=== PATIENT | male | born 1975 | race Hispanic/Latino ===

== ENCOUNTER 2020-09-13 10:41 | Inpatient (IN) | payer SELFPAY ==
[~2020-09-13] VITALS: Ht 170.2 cm; Wt 84.1 kg
[2020-09-13 10:43] VITALS: BP 129/76
[2020-09-13 11:16] LABS: APPEARANCE,URINE Clear (CLEAR); BILIRUBIN,URINE Negative (NEGATIVE); COLOR,URINE Yellow (YELLOW); GLUCOSE, URINE (UA) >=1000 mg/dL (NEGATIVE); KETONES,URINE 15 mg/dL (NEGATIVE); LEUKOCYTE ESTERASE ,URINE Negative (NEGATIVE); NITRATE,URINE Negative (NEGATIVE); OCCULT BLOOD,URINE Negative (NEGATIVE); PROTEIN,URINE Negative (NEGATIVE); UROBILINOGEN,URINE 0.2 mg/dL (0.2-1.0)
[2020-09-13 11:28] LABS: RBC,URINE 0-1 /HPF (0-1)
[2020-09-13 11:29] LABS: BACTERIA,URINE Rare /HPF (None Seen); SQUAMOUS EPITHELIAL CELL,UR Few /HPF (0-2)
[2020-09-13 11:30] LABS: BASOPHILS % (AUTO) 0.3 % (0.0-5.0); EOSINOPHILS % (AUTO) 2.3 % (0.0-8.0); HEMATOCRIT 46.3 % (42-54); LYMPHOCYTES % (AUTO) 5.2 % (21.0-51.0); MEAN CORPUSCULAR HEMOGLOBIN 29.6 pg (27.0-33.0); MEAN CORPUSCULAR HGB CONC 35.6 g/dL (32.0-36.0); MEAN CORPUSCULAR VOLUME 83.1 fL (79-99); NEUTROPHILS % (AUTO) 82.7 % (40.0-77.0); PLATELET COUNT (AUTO) 322 K/uL (130-400); RED BLOOD CELL COUNT(AUTO) 5.57 MIL/uL (4.50-6.20); RED CELL DISTRIBUTION WIDTH 13.6 % (11.0-15.5); WHITE BLOOD COUNT (AUTO) 11.1 K/uL (4.8-10.8)
[2020-09-13 11:58] LABS: ALBUMIN 3.3 g/dL (3.5-5.0); BILIRUBIN,TOTAL 1.5 mg/dL (0.2-1.0)
[2020-09-13] MEDS ORDERED: PROCHLORPERAZINE EDISYLATE 5 MG/ML 2 ML VIAL IVP ONE (12:00)
[2020-09-13] MEDS ORDERED: FAMOTIDINE 20MG VIAL IV ONE (12:00)
[2020-09-13] MEDS ORDERED: KETOROLAC 30MG VIAL (30MG/ML) IVP ONE (12:00)
[2020-09-13] MEDS ORDERED: LACTATED RINGERS 1000ML 1,000 ML IV ONE ×2 (12:00→13:00)
[2020-09-13] MEDS ORDERED: DiphenhydrAMINE HCL 50 MG/ML VIAL IV ONE (12:00)
[2020-09-13 12:43] LABS: CREATININE 1.1 mg/dL (0.5-1.5)
[2020-09-13] MEDS ORDERED: 0.9%NACL 1000ML 1,000 ML IV ONE (13:00)
[2020-09-13] MEDS ORDERED: INSULIN HUMULIN R 100 UNIT/ML 3ML IV ONE ×2 (13:00→17:00)
[2020-09-13 13:01] LABS: TOTAL PROTEIN, SERUM 7.5 g/dL (6.0-8.3)
[2020-09-13] MEDS ORDERED: PROCHLORPERAZINE 10MG/2ML INJ ONE (13:20)
[2020-09-13 14:59] VITALS: BP 110/70
[2020-09-13] MEDS ORDERED: ZOSYN 3.375GM+NS 50ML 50 ML IV ONE (17:30)
[2020-09-13] MEDS ORDERED: 0.9%NACL 50ML 50 ML IV ONE (17:48)
[2020-09-13] MEDS ORDERED: FENTANYL CITRATE PF 50 MCG/1 ML 2ML VIAL IVP ONE (18:00)
[2020-09-13 19:00] VITALS: BP 109/77
[2020-09-13] MEDS ORDERED: NITROGLYCERIN 0.4 MG SL TAB SL PRN (19:30)
[2020-09-13] MEDS ORDERED: INSULIN REGULAR, HUMAN 3ML 100 UNIT in 0.9%NACL 100ML 99 ML IV SCH ×2 (19:30)
[2020-09-13] MEDS ORDERED: DEXTROSE 5 %-0.45 % NACL 1,000 ML IV PRN (19:30)
[2020-09-13] MEDS ORDERED: ONDANSETRON 4MG INJ IV PRN (19:30)
[2020-09-13] MEDS ORDERED: ACETAMINOPHEN 325 MG TAB PO PRN ×2 (19:30)
[2020-09-13] MEDS ORDERED: 0.9%NACL 1000ML 1,000 ML IV SCH (19:30)
[2020-09-13] MEDS ORDERED: FENTANYL CITRATE PF 50 MCG/1 ML 2ML VIAL ONE (19:57)
[2020-09-13] MEDS ORDERED: MORPHINE 2 MG SYG IVP PRN (20:00)
[2020-09-13 20:01] VITALS: BP 124/76
[2020-09-13] MEDS: 0.9%NACL 1000ML 1,000 ML IV SCH (20:29)
[2020-09-13 20:44] LABS: CREATININE 1.2 mg/dL (0.5-1.5); MAGNESIUM 1.9 mg/dL (1.80-2.40)
[2020-09-13 20:53] LABS: ABG BASE EXCESS -5.1 mmol/L (-2.0-3.0); ABG HCO3 17.7 mmol/L (21.0-28.0); ABG OXYGEN SATURATION 94.9 % (95.0-99.0); ABG PCO2 28 mmHg (35-48)
[2020-09-13 21:00] VITALS: BP 115/73
[2020-09-13] MEDS: FAMOTIDINE 20MG VIAL IV SCH (21:00)
[2020-09-13] MEDS ORDERED: CALCIUM GLUC IV SCH (21:00)
[2020-09-13] MEDS ORDERED: [UNRECOGNIZED DRUG - OTHER] IV SCH (21:00)
[2020-09-13 22:00] VITALS: BP 116/73
[2020-09-14] VITALS (18 sets, daily range): BP systolic 123–161; BP diastolic 76–99
[2020-09-14 00:40] LABS: ABG BASE EXCESS -4.1 mmol/L (-2.0-3.0); ABG HCO3 18.3 mmol/L (21.0-28.0); ABG OXYGEN SATURATION 94.3 % (95.0-99.0); ABG PCO2 27 mmHg (35-48)
[2020-09-14 02:19] LABS: CREATININE 0.9 mg/dL (0.5-1.5); MAGNESIUM 1.8 mg/dL (1.80-2.40); POTASSIUM 3.6 mmol/L (3.5-5.1)
[2020-09-14 04:30] LABS: ABG BASE EXCESS -1.5 mmol/L (-2.0-3.0); ABG HCO3 21.2 mmol/L (21.0-28.0); ABG OXYGEN SATURATION 94.4 % (95.0-99.0); ABG PCO2 31 mmHg (35-48)
[2020-09-14] MEDS: 0.9%NACL 1000ML 1,000 ML IV SCH (04:43)
[2020-09-14 04:47] LABS: BASOPHILS % (AUTO) 0.1 % (0.0-5.0); EOSINOPHILS % (AUTO) 1.6 % (0.0-8.0); HEMATOCRIT 39.8 % (42-54); LYMPHOCYTES % (AUTO) 7.6 % (21.0-51.0); MEAN CORPUSCULAR HEMOGLOBIN 28.7 pg (27.0-33.0); MEAN CORPUSCULAR HGB CONC 35.2 g/dL (32.0-36.0); MEAN CORPUSCULAR VOLUME 81.7 fL (79-99); MONOCYTES % (AUTO) 6.6 % (3.0-13.0); NEUTROPHILS % (AUTO) 83.9 % (40.0-77.0); PLATELET COUNT (AUTO) 261 K/uL (130-400); RED BLOOD CELL COUNT(AUTO) 4.87 MIL/uL (4.50-6.20); RED CELL DISTRIBUTION WIDTH 13.8 % (11.0-15.5)
[2020-09-14 05:27] LABS: ALBUMIN 2.6 g/dL (3.5-5.0); BILIRUBIN,TOTAL 0.7 mg/dL (0.2-1.0); CREATININE 0.9 mg/dL (0.5-1.5); MAGNESIUM 1.8 mg/dL (1.80-2.40); POTASSIUM 3.3 mmol/L (3.5-5.1); TOTAL PROTEIN, SERUM 6.6 g/dL (6.0-8.3)
[2020-09-14] MEDS ORDERED: [UNRECOGNIZED DRUG - OTHER] IV SCH ×2 (05:30→20:30)
[2020-09-14] MEDS ORDERED: LACTATED RINGERS 1000ML 1,000 ML IV SCH (05:30)
[2020-09-14] MEDS ORDERED: CALCIUM GLUC IV SCH ×2 (05:30→20:30)
[2020-09-14] MEDS: POTASSIUM CHLORIDE 10MEQ/100ML 100 ML IV PRN ×6 (06:27→23:53)
[2020-09-14 07:51] LABS: ABG BASE EXCESS -3.1 mmol/L (-2.0-3.0); ABG HCO3 20.3 mmol/L (21.0-28.0); ABG OXYGEN SATURATION 93.5 % (95.0-99.0); ABG PCO2 32 mmHg (35-48)
[2020-09-14] MEDS: FAMOTIDINE 20MG VIAL IV SCH (08:09)
[2020-09-14] MEDS ORDERED: ENOXAPARIN SODIUM 30 MG/0.3 ML SQ SCH (09:00)
[2020-09-14] MEDS: DEXTROSE 5%-LACTATED RINGERS 1,000 ML IV SCH ×2 (10:56→18:09)
[2020-09-14] MEDS: FISH OIL 1000 MG/CAP PO SCH ×2 (10:57→18:09)
[2020-09-14] MEDS: ZOSYN 3.375GM+NS 50ML 50 ML IV SCH ×2 (10:57→18:08)
[2020-09-14] MEDS: CALCIUM GLUC 1GM VIAL 1 GM in 0.9%NACL 100ML 100 ML IV SCH (10:57)
[2020-09-14] MEDS ORDERED: PIP/TAZ ZOSYN 3.375G 3.375 GM VIAL IVPB SCH (11:00)
[2020-09-14] MEDS ORDERED: ONDANSETRON 4MG INJ IVP PRN (11:00)
[2020-09-14 12:30] LABS: CREATININE 0.9 mg/dL (0.5-1.5); MAGNESIUM 1.8 mg/dL (1.80-2.40); POTASSIUM 3.3 mmol/L (3.5-5.1)
[2020-09-14] MEDS ORDERED: POTASSIUM CHLORIDE 20MEQ/100ML 100 ML IV PRN (14:30)
[2020-09-14] MEDS: FENTANYL CITRATE PF 50 MCG/1 ML 2ML VIAL IVP PRN ×2 (14:41→20:23)
[2020-09-14] MEDS: MAGNESIUM 2GM PREMIX 50ML 50 ML IV PRN (18:05)
[2020-09-14] MEDS ORDERED: LOSA50TA64 PO (19:25)
[2020-09-14 20:00] LABS: ALBUMIN 2.5 g/dL (3.5-5.0); BILIRUBIN,TOTAL 0.8 mg/dL (0.2-1.0); CREATININE 0.9 mg/dL (0.5-1.5); MAGNESIUM 2.6 mg/dL (1.80-2.40); PHOSPHORUS 0.8 mg/dL (2.5-4.9); POTASSIUM 3.3 mmol/L (3.5-5.1); TOTAL PROTEIN, SERUM 6.6 g/dL (6.0-8.3)
[2020-09-14] MEDS ORDERED: D5LR-20 MEQ KCL 1000ML BAG IV SCH (20:30)
[2020-09-14] MEDS ORDERED: ATORVASTATIN 40 MG TABLET PO SCH (21:00)
[2020-09-14] MEDS: D5LR-20 MEQ KCL 1000 ML 1,000 ML IV SCH (21:28)
[2020-09-14] MEDS: POTASSIUM PHOS 15 mMOL+NS250ML 250 ML IV PRN (21:29)
[2020-09-14] MEDS: INSULIN REGULAR, HUMAN 3ML 100 UNIT in 0.9%NACL 100ML 99 ML IV PRN ×2 (22:18)
[2020-09-15] VITALS (24 sets, daily range): BP systolic 110–168; BP diastolic 83–96
[2020-09-15] MEDS: HYDROMORPHONE 0.5 MG SYG (0.5MG/0.5ML) IVP PRN ×4 (01:19→22:09)
[2020-09-15 02:42] LABS: ALBUMIN 2.3 g/dL (3.5-5.0); BILIRUBIN,TOTAL 0.8 mg/dL (0.2-1.0); CREATININE 0.8 mg/dL (0.5-1.5); MAGNESIUM 2.2 mg/dL (1.80-2.40); PHOSPHORUS 1.8 mg/dL (2.5-4.9); POTASSIUM 3.7 mmol/L (3.5-5.1); TOTAL PROTEIN, SERUM 6.1 g/dL (6.0-8.3)
[2020-09-15] MEDS: ZOSYN 3.375GM+NS 50ML 50 ML IV SCH ×3 (03:01→18:44)
[2020-09-15] MEDS: FISH OIL 1000 MG/CAP PO SCH ×3 (03:01→18:44)
[2020-09-15] MEDS: POTASSIUM CHLORIDE 10MEQ/100ML 100 ML IV PRN ×2 (03:02→09:25)
[2020-09-15] MEDS: CALCIUM GLUC 1GM VIAL 1 GM in 0.9%NACL 100ML 100 ML IV SCH (03:02)
[2020-09-15] MEDS: D5LR-20 MEQ KCL 1000 ML 1,000 ML IV SCH ×3 (04:17→20:21)
[2020-09-15] MEDS: POTASSIUM PHOS 15 mMOL+NS250ML 250 ML IV PRN ×2 (07:32→15:52)
[2020-09-15 07:48] LABS: ALBUMIN 2.3 g/dL (3.5-5.0); CREATININE 0.9 mg/dL (0.5-1.5); MAGNESIUM 2.2 mg/dL (1.80-2.40); POTASSIUM 3.6 mmol/L (3.5-5.1); TOTAL PROTEIN, SERUM 6.3 g/dL (6.0-8.3)
[2020-09-15] MEDS: POTASSIUM CHLORIDE 10MEQ SR TAB PO SCH ×2 (08:47→21:01)
[2020-09-15] MEDS: ENOXAPARIN SODIUM 40 MG/0.4 ML SYRINGE SQ SCH (08:47)
[2020-09-15] MEDS: FENOFIBRATE NANOCRYSTALLIZED 145 MG TAB PO SCH (08:47)
[2020-09-15] MEDS: LOSARTAN 50 MG TABLET PO SCH (08:47)
[2020-09-15] MEDS ORDERED: PANTOPRAZOLE 40 MG/VIAL IVP SCH (09:00)
[2020-09-15] MEDS ORDERED: 0.9%NACL 100ML 100 ML ONE (11:25)
[2020-09-15 13:40] LABS: ALBUMIN 2.3 g/dL (3.5-5.0); CREATININE 0.8 mg/dL (0.5-1.5); MAGNESIUM 2.1 mg/dL (1.80-2.40); PHOSPHORUS 1.5 mg/dL (2.5-4.9); POTASSIUM 3.8 mmol/L (3.5-5.1); TOTAL PROTEIN, SERUM 6.4 g/dL (6.0-8.3)
[2020-09-15] MEDS: INSULIN REGULAR, HUMAN 3ML 100 UNIT in 0.9%NACL 100ML 99 ML IV PRN ×2 (15:53)
[2020-09-15 19:46] LABS: ALBUMIN 2.2 g/dL (3.5-5.0); BILIRUBIN,TOTAL 0.9 mg/dL (0.2-1.0); CREATININE 0.9 mg/dL (0.5-1.5); PHOSPHORUS 1.6 mg/dL (2.5-4.9); TOTAL PROTEIN, SERUM 6.3 g/dL (6.0-8.3)
[2020-09-15] MEDS: ATORVASTATIN 40 MG TABLET PO SCH (20:21)
[2020-09-16] VITALS (18 sets, daily range): BP systolic 127–173; BP diastolic 83–101
[2020-09-16] MEDS: INSULIN REGULAR, HUMAN 3ML 100 UNIT in 0.9%NACL 100ML 99 ML IV PRN ×2 (01:12)
[2020-09-16] MEDS ORDERED: 0.9%NACL 100ML 100 ML ONE ×2 (02:54→18:17)
[2020-09-16] MEDS: FISH OIL 1000 MG/CAP PO SCH ×3 (02:57→18:27)
[2020-09-16] MEDS: ZOSYN 3.375GM+NS 50ML 50 ML IV SCH ×3 (02:57→18:27)
[2020-09-16] MEDS: HYDROMORPHONE 0.5 MG SYG (0.5MG/0.5ML) IVP PRN ×4 (02:58→20:41)
[2020-09-16 05:24] LABS: ALBUMIN 2.2 g/dL (3.5-5.0); BILIRUBIN,TOTAL 0.9 mg/dL (0.2-1.0); CREATININE 0.7 mg/dL (0.5-1.5); MAGNESIUM 2.1 mg/dL (1.80-2.40); PHOSPHORUS 1.9 mg/dL (2.5-4.9); POTASSIUM 4.2 mmol/L (3.5-5.1); TOTAL PROTEIN, SERUM 6.5 g/dL (6.0-8.3)
[2020-09-16] MEDS: D5LR-20 MEQ KCL 1000 ML 1,000 ML IV SCH (06:29)
[2020-09-16] MEDS ORDERED: ACETAMINOPHEN 500 MG TABLET PO ONE (08:00)
[2020-09-16 08:19] LABS: HEMOGLOBIN A1C 8.5 % (4.0-6.0)
[2020-09-16] MEDS ORDERED: ACETAMINOPHEN 500 MG TABLET PO SCH (08:30)
[2020-09-16] MEDS: FENOFIBRATE NANOCRYSTALLIZED 145 MG TAB PO SCH (09:33)
[2020-09-16] MEDS: LOSARTAN 50 MG TABLET PO SCH (09:33)
[2020-09-16] MEDS: ENOXAPARIN SODIUM 40 MG/0.4 ML SYRINGE SQ SCH (09:33)
[2020-09-16] MEDS: PANTOPRAZOLE 40 MG TAB DR PO SCH (09:33)
[2020-09-16] MEDS: INSULIN HUMULIN R 100 UNIT/ML 3ML SQ SCH ×3 (12:32→20:43)
[2020-09-16] MEDS: ACETAMINOPHEN 500 MG TABLET PO SCH ×3 (13:00→23:46)
[2020-09-16 13:36] LABS: ALBUMIN 2.2 g/dL (3.5-5.0); BILIRUBIN,TOTAL 1.2 mg/dL (0.2-1.0); MAGNESIUM 1.8 mg/dL (1.80-2.40); PHOSPHORUS 2.4 mg/dL (2.5-4.9); POTASSIUM 3.7 mmol/L (3.5-5.1); TOTAL PROTEIN, SERUM 6.5 g/dL (6.0-8.3)
[2020-09-16 20:17] LABS: ALBUMIN 2.3 g/dL (3.5-5.0); BILIRUBIN,TOTAL 1.1 mg/dL (0.2-1.0); CREATININE 0.8 mg/dL (0.5-1.5); PHOSPHORUS 2.1 mg/dL (2.5-4.9); POTASSIUM 3.9 mmol/L (3.5-5.1); TOTAL PROTEIN, SERUM 6.8 g/dL (6.0-8.3)
[2020-09-16] MEDS: ATORVASTATIN 40 MG TABLET PO SCH (20:40)
[2020-09-17] MEDS ORDERED: 0.9%NACL 100ML 100 ML ONE (02:30)
[2020-09-17] MEDS: FISH OIL 1000 MG/CAP PO SCH ×3 (02:34→21:11)
[2020-09-17] MEDS: ZOSYN 3.375GM+NS 50ML 50 ML IV SCH ×2 (02:34→13:12)
[2020-09-17 04:00] VITALS: BP 153/91
[2020-09-17 04:08] LABS: ALBUMIN 2.3 g/dL (3.5-5.0); BILIRUBIN,TOTAL 0.9 mg/dL (0.2-1.0); CREATININE 0.8 mg/dL (0.5-1.5); POTASSIUM 3.6 mmol/L (3.5-5.1); TOTAL PROTEIN, SERUM 6.8 g/dL (6.0-8.3)
[2020-09-17] MEDS: HYDROMORPHONE 0.5 MG SYG (0.5MG/0.5ML) IVP PRN ×5 (04:36→21:12)
[2020-09-17] MEDS: ACETAMINOPHEN 500 MG TABLET PO SCH (06:25)
[2020-09-17] MEDS: INSULIN HUMULIN R 100 UNIT/ML 3ML SQ SCH ×6 (06:37→21:25)
[2020-09-17 07:00] VITALS: BP 145/84
[2020-09-17] MEDS ORDERED: ACETAMINOPHEN 500 MG TABLET PO PRN (08:30)
[2020-09-17] MEDS: FENOFIBRATE NANOCRYSTALLIZED 145 MG TAB PO SCH (09:02)
[2020-09-17] MEDS: ENOXAPARIN SODIUM 40 MG/0.4 ML SYRINGE SQ SCH (09:02)
[2020-09-17] MEDS: FLUCONAZOLE 100 MG TAB PO SCH (09:02)
[2020-09-17] MEDS: LOSARTAN 50 MG TABLET PO SCH (09:03)
[2020-09-17] MEDS: POTASSIUM CHLORIDE 10MEQ SR TAB PO SCH (09:03)
[2020-09-17] MEDS: PANTOPRAZOLE 40 MG TAB DR PO SCH (09:03)
[2020-09-17 12:00] VITALS: BP 147/87
[2020-09-17 16:00] VITALS: BP_SYST 111; BP_SYST 159; BP_DIAS 62; BP_DIAS 92
[2020-09-17] MEDS ORDERED: 0.9%NACL 50ML 50 ML IV SCH (17:00)
[2020-09-17] MEDS ORDERED: ZOSYN 3.375GM +NS 50ML IV SCH (17:00)
[2020-09-17 20:05] VITALS: BP 163/88
[2020-09-17] MEDS ORDERED: INSULIN GLARGINE 100 UNITS/ML 10 ML VIAL SQ SCH (21:00)
[2020-09-17] MEDS: ATORVASTATIN 40 MG TABLET PO SCH (21:10)
[2020-09-17] MEDS ORDERED: ZOSYN 3.375GM+NS 50ML 50 ML IV SCH (22:00)
[2020-09-18] VITALS (7 sets, daily range): BP systolic 137–154; BP diastolic 79–86
[2020-09-18] MEDS: ZOSYN 3.375GM +NS 50ML IV SCH ×3 (01:08→18:54)
[2020-09-18] MEDS: 0.9%NACL 50ML 50 ML IV SCH ×3 (01:08→18:54)
[2020-09-18 03:41] LABS: BASOPHILS % (AUTO) 0.5 % (0.0-5.0); EOSINOPHILS % (AUTO) 0.5 % (0.0-8.0); HEMATOCRIT 33.4 % (42-54); LYMPHOCYTES % (AUTO) 9.7 % (21.0-51.0); MEAN CORPUSCULAR HEMOGLOBIN 27.6 pg (27.0-33.0); MEAN CORPUSCULAR HGB CONC 33.5 g/dL (32.0-36.0); MEAN CORPUSCULAR VOLUME 82.3 fL (79-99); MONOCYTES % (AUTO) 13.2 % (3.0-13.0); NEUTROPHILS % (AUTO) 73.3 % (40.0-77.0); PLATELET COUNT (AUTO) 304 K/uL (130-400); RED BLOOD CELL COUNT(AUTO) 4.06 MIL/uL (4.50-6.20); RED CELL DISTRIBUTION WIDTH 13.2 % (11.0-15.5); WHITE BLOOD COUNT (AUTO) 7.4 K/uL (4.8-10.8)
[2020-09-18] MEDS: HYDROMORPHONE 0.5 MG SYG (0.5MG/0.5ML) IVP PRN ×3 (03:41→19:55)
[2020-09-18 04:07] LABS: ALBUMIN 2.3 g/dL (3.5-5.0); BILIRUBIN,TOTAL 0.7 mg/dL (0.2-1.0); CREATININE 0.8 mg/dL (0.5-1.5); POTASSIUM 3.6 mmol/L (3.5-5.1)
[2020-09-18] MEDS: FISH OIL 1000 MG/CAP PO SCH ×3 (06:29→21:40)
[2020-09-18] MEDS: INSULIN HUMULIN R 100 UNIT/ML 3ML SQ SCH ×7 (06:34→21:36)
[2020-09-18] MEDS: LOSARTAN 50 MG TABLET PO SCH (08:24)
[2020-09-18] MEDS: FLUCONAZOLE 100 MG TAB PO SCH (08:24)
[2020-09-18] MEDS: POTASSIUM CHLORIDE 10MEQ SR TAB PO SCH (08:24)
[2020-09-18] MEDS: PANTOPRAZOLE 40 MG TAB DR PO SCH (08:24)
[2020-09-18] MEDS: FENOFIBRATE NANOCRYSTALLIZED 145 MG TAB PO SCH (08:24)
[2020-09-18] MEDS: ENOXAPARIN SODIUM 40 MG/0.4 ML SYRINGE SQ SCH (08:25)
[2020-09-18] MEDS ORDERED: GADOTERATE MEGLUMINE 10 MMOL/20 ML VIAL IV ONE ×2 (10:02→13:37)
[2020-09-18] MEDS: ATORVASTATIN 40 MG TABLET PO SCH (19:55)
[2020-09-18] MEDS: INSULIN GLARGINE 100 UNITS/ML 10 ML VIAL SQ SCH (21:36)
[2020-09-19] MEDS: ZOSYN 3.375GM +NS 50ML IV SCH ×3 (01:05→17:37)
[2020-09-19] MEDS: 0.9%NACL 50ML 50 ML IV SCH ×3 (01:05→17:40)
[2020-09-19] MEDS ORDERED: HYDROMORPHONE 1 MG INJ IVP PRN (02:00)
[2020-09-19] MEDS: HYDROMORPHONE 0.5 MG SYG (0.5MG/0.5ML) IVP PRN ×3 (03:20→21:27)
[2020-09-19 05:09] VITALS: BP 118/71
[2020-09-19 05:09] LABS: MAGNESIUM 1.9 mg/dL (1.80-2.40); PHOSPHORUS 2.9 mg/dL (2.5-4.9)
[2020-09-19 05:30] LABS: CRP QUANTITATIVE 262.9 mg/L (0.00-9.0)
[2020-09-19 05:52] LABS: BASOPHILS % (AUTO) 0.3 % (0.0-5.0); EOSINOPHILS % (AUTO) 0.4 % (0.0-8.0); HEMATOCRIT 33.4 % (42-54); LYMPHOCYTES % (AUTO) 8.3 % (21.0-51.0); MEAN CORPUSCULAR HEMOGLOBIN 28.1 pg (27.0-33.0); MEAN CORPUSCULAR HGB CONC 32.9 g/dL (32.0-36.0); MEAN CORPUSCULAR VOLUME 85.2 fL (79-99); MONOCYTES % (AUTO) 12.1 % (3.0-13.0); NEUTROPHILS % (AUTO) 75.6 % (40.0-77.0); PLATELET COUNT (AUTO) 338 K/uL (130-400); RED BLOOD CELL COUNT(AUTO) 3.92 MIL/uL (4.50-6.20); RED CELL DISTRIBUTION WIDTH 13.4 % (11.0-15.5)
[2020-09-19 05:55] LABS: CREATININE 0.9 mg/dL (0.5-1.5); POTASSIUM 3.4 mmol/L (3.5-5.1)
[2020-09-19] MEDS: FISH OIL 1000 MG/CAP PO SCH ×3 (06:25→21:24)
[2020-09-19] MEDS: MAGNESIUM 2GM PREMIX 50ML 50 ML IV PRN (06:25)
[2020-09-19] MEDS: INSULIN HUMULIN R 100 UNIT/ML 3ML SQ SCH ×5 (06:49→17:37)
[2020-09-19 08:00] VITALS: BP 153/82
[2020-09-19] MEDS: FENOFIBRATE NANOCRYSTALLIZED 145 MG TAB PO SCH (09:06)
[2020-09-19] MEDS: FLUCONAZOLE 100 MG TAB PO SCH (09:09)
[2020-09-19] MEDS: PANTOPRAZOLE 40 MG TAB DR PO SCH (09:09)
[2020-09-19] MEDS: LOSARTAN 50 MG TABLET PO SCH (09:09)
[2020-09-19] MEDS: ENOXAPARIN SODIUM 40 MG/0.4 ML SYRINGE SQ SCH (09:10)
[2020-09-19 12:00] VITALS: BP 147/82
[2020-09-19 15:52] LABS: CREATININE 1.1 mg/dL (0.5-1.5); POTASSIUM 3.9 mmol/L (3.5-5.1)
[2020-09-19 15:56] LABS: ALBUMIN 2.3 g/dL (3.5-5.0); BILIRUBIN,TOTAL 0.4 mg/dL (0.2-1.0); TOTAL PROTEIN, SERUM 7.3 g/dL (6.0-8.3)
[2020-09-19 16:00] VITALS: BP 154/84
[2020-09-19 20:08] VITALS: BP 136/83
[2020-09-19] MEDS: INSULIN GLARGINE 100 UNITS/ML 10 ML VIAL SQ SCH (21:20)
[2020-09-19] MEDS: ATORVASTATIN 40 MG TABLET PO SCH (21:27)
[2020-09-20 00:08] VITALS: BP 139/81
[2020-09-20] MEDS: 0.9%NACL 50ML 50 ML IV SCH ×3 (00:13→17:02)
[2020-09-20] MEDS: ZOSYN 3.375GM +NS 50ML IV SCH ×3 (00:13→17:01)
[2020-09-20] MEDS: INSULIN HUMULIN R 100 UNIT/ML 3ML SQ SCH ×7 (00:14→17:03)
[2020-09-20 04:04] VITALS: BP 125/68
[2020-09-20] MEDS: FISH OIL 1000 MG/CAP PO SCH ×3 (04:19→20:43)
[2020-09-20] MEDS: HYDROMORPHONE 0.5 MG SYG (0.5MG/0.5ML) IVP PRN (04:19)
[2020-09-20 06:29] LABS: BASOPHILS % (AUTO) 0.3 % (0.0-5.0); EOSINOPHILS % (AUTO) 0.8 % (0.0-8.0); HEMATOCRIT 31.9 % (42-54); LYMPHOCYTES % (AUTO) 8.7 % (21.0-51.0); MEAN CORPUSCULAR HEMOGLOBIN 27.7 pg (27.0-33.0); MEAN CORPUSCULAR HGB CONC 33.2 g/dL (32.0-36.0); MEAN CORPUSCULAR VOLUME 83.5 fL (79-99); MONOCYTES % (AUTO) 10.5 % (3.0-13.0); NEUTROPHILS % (AUTO) 76.1 % (40.0-77.0); PLATELET COUNT (AUTO) 348 K/uL (130-400); RED BLOOD CELL COUNT(AUTO) 3.82 MIL/uL (4.50-6.20); RED CELL DISTRIBUTION WIDTH 13.2 % (11.0-15.5); WHITE BLOOD COUNT (AUTO) 10.4 K/uL (4.8-10.8)
[2020-09-20 07:50] VITALS: BP 124/74
[2020-09-20 08:07] LABS: CREATININE 1.1 mg/dL (0.5-1.5)
[2020-09-20] MEDS: ENOXAPARIN SODIUM 40 MG/0.4 ML SYRINGE SQ SCH (09:11)
[2020-09-20] MEDS: PANTOPRAZOLE 40 MG TAB DR PO SCH (09:11)
[2020-09-20] MEDS: LOSARTAN 50 MG TABLET PO SCH (09:11)
[2020-09-20] MEDS: FLUCONAZOLE 100 MG TAB PO SCH (09:11)
[2020-09-20] MEDS: FENOFIBRATE NANOCRYSTALLIZED 145 MG TAB PO SCH (09:11)
[2020-09-20] MEDS ORDERED: LACTULOSE 20 GM/30 ML UDCUP PO PRN (10:00)
[2020-09-20 11:37] VITALS: BP 141/82
[2020-09-20 16:00] VITALS: BP 131/81
[2020-09-20 20:12] VITALS: BP 139/88
[2020-09-20] MEDS: ATORVASTATIN 40 MG TABLET PO SCH (20:43)
[2020-09-20] MEDS: DOCUSATE SODIUM 100 MG CAP PO SCH (20:43)
[2020-09-20] MEDS ORDERED: INSULIN GLARGINE 100 UNITS/ML 10 ML VIAL SQ SCH (21:00)
[2020-09-21] MEDS: ZOSYN 3.375GM +NS 50ML IV SCH ×2 (00:04→10:29)
[2020-09-21 00:16] VITALS: BP 120/80
[2020-09-21] MEDS: 0.9%NACL 50ML 50 ML IV SCH ×3 (01:20→17:00)
[2020-09-21] MEDS: INSULIN HUMULIN R 100 UNIT/ML 3ML SQ SCH ×7 (01:21→16:56)
[2020-09-21 04:16] VITALS: BP 121/78
[2020-09-21] MEDS: FISH OIL 1000 MG/CAP PO SCH ×2 (06:03→16:46)
[2020-09-21 06:31] LABS: BASOPHILS % (AUTO) 0.4 % (0.0-5.0); EOSINOPHILS % (AUTO) 1.3 % (0.0-8.0); HEMATOCRIT 32.9 % (42-54); LYMPHOCYTES % (AUTO) 10.6 % (21.0-51.0); MEAN CORPUSCULAR HEMOGLOBIN 28.1 pg (27.0-33.0); MEAN CORPUSCULAR HGB CONC 32.5 g/dL (32.0-36.0); MEAN CORPUSCULAR VOLUME 86.4 fL (79-99); MONOCYTES % (AUTO) 10.8 % (3.0-13.0); NEUTROPHILS % (AUTO) 72.4 % (40.0-77.0); PLATELET COUNT (AUTO) 395 K/uL (130-400); RED BLOOD CELL COUNT(AUTO) 3.81 MIL/uL (4.50-6.20); RED CELL DISTRIBUTION WIDTH 13.3 % (11.0-15.5); WHITE BLOOD COUNT (AUTO) 10.3 K/uL (4.8-10.8)
[2020-09-21 06:46] LABS: ALBUMIN 2.2 g/dL (3.5-5.0); BILIRUBIN,TOTAL 0.4 mg/dL (0.2-1.0); CREATININE 1.2 mg/dL (0.5-1.5); POTASSIUM 3.5 mmol/L (3.5-5.1)
[2020-09-21 07:58] VITALS: BP 126/85
[2020-09-21] MEDS: PANTOPRAZOLE 40 MG TAB DR PO SCH (10:25)
[2020-09-21] MEDS: DOCUSATE SODIUM 100 MG CAP PO SCH (10:25)
[2020-09-21] MEDS: FENOFIBRATE NANOCRYSTALLIZED 145 MG TAB PO SCH (10:25)
[2020-09-21] MEDS: FLUCONAZOLE 100 MG TAB PO SCH (10:26)
[2020-09-21] MEDS: LOSARTAN 50 MG TABLET PO SCH (10:26)
[2020-09-21] MEDS: ENOXAPARIN SODIUM 40 MG/0.4 ML SYRINGE SQ SCH (10:27)
[2020-09-21 10:47] VITALS: BP 145/86
[2020-09-21] MEDS ORDERED: OMEG-114 PO (14:26)
[2020-09-21] MEDS ORDERED: ATOR40TA69 PO (14:26)
[2020-09-21] MEDS ORDERED: FENO145T PO (14:26)
[2020-09-21 15:57] VITALS: BP 150/95
== END 2020-09-21 18:36 | disposition home or self-care (01) | DRG 637 ==
LOC: EDH 10:41 → EDHIP 10:42 → 2DH 09-14 08:36 → 4AH 09-17 10:04
PROVIDERS: ADMIT Internal Medicine; ATTEND Internal Medicine
DX: E10.10 Type 1 diabetes mellitus with ketoacidosis without coma (principal); K85.90 Acute pancreatitis without necrosis or infection, unspecified; J98.11 Atelectasis; E87.1 Hypo-osmolality and hyponatremia; R65.10 Systemic inflammatory response syndrome (SIRS) of non-infectious origin without acute organ dysfunction; E87.8 Other disorders of electrolyte and fluid balance, not elsewhere classified; E87.6 Hypokalemia; R09.02 Hypoxemia; E78.1 Pure hyperglyceridemia; E83.42 Hypomagnesemia; E83.51 Hypocalcemia; E78.5 Hyperlipidemia, unspecified; E86.0 Dehydration; I10 Essential (primary) hypertension; K44.9 Diaphragmatic hernia without obstruction or gangrene; M47.815 Spondylosis without myelopathy or radiculopathy, thoracolumbar region; Z79.4 Long term (current) use of insulin
CPT/HCPCS: 36415; 36600; 74176; 74183; 76705; 80048; 80053; 80061; 81001; 82150; 82330; 82550; 82803; 82948; 83036; 83605; 83690; 83735; 83930; 84100; 84132; 84145; 84478; 84484; 85025; 85610; 85651; 85730; 86140; 86701; 87040; 87390; 93005; 99291; C9113; G0378; J0610; J0780; J1170; J1200; J1650; J1815; J1885; J2405; J2543; J3010; J3475; J3480; J3490